=== PATIENT | male | born 1940 | race Caucasian/White ===

== ENCOUNTER → 2020-07-06 | Outpatient (CLI) | payer OTHER | END | disposition home or self-care (01) | LOC: RAH 08:19 | PROVIDERS: ATTEND Urology | DX: R31.29 Other microscopic hematuria (principal) | CPT/HCPCS: 76770 ==

== ENCOUNTER 2022-07-10 07:30 | Day surgery (SDC) | payer MEDICARE ==
[2022-07-07 11:54] LABS: BASOPHILS % (AUTO) 0.2 % (0.0-5.0); EOSINOPHILS % (AUTO) 0.9 % (0.0-8.0); HEMATOCRIT 48.3 % (42-54); LYMPHOCYTES % (AUTO) 48.9 % (21.0-51.0); MEAN CORPUSCULAR HEMOGLOBIN 28.6 pg (27.0-33.0); MEAN CORPUSCULAR HGB CONC 32.5 g/dL (32.0-36.0); MEAN CORPUSCULAR VOLUME 88.1 fL (79-99); MONOCYTES % (AUTO) 6.7 % (3.0-13.0); NEUTROPHILS % (AUTO) 43.1 % (40.0-77.0); PLATELET COUNT (AUTO) 165 K/uL (130-400); RED BLOOD CELL COUNT(AUTO) 5.48 MIL/uL (4.50-6.20); RED CELL DISTRIBUTION WIDTH 13.4 % (11.0-15.5); WHITE BLOOD COUNT (AUTO) 12.6 K/uL (4.8-10.8)
[2022-07-07 12:00] LABS: CREATININE 1.3 mg/dL (0.5-1.5); POTASSIUM 4.3 mmol/L (3.5-5.1)
[2022-07-07 12:09] LABS: INR 1.01 (0.85-1.15)
[2022-07-07 12:10] LABS: PARTIAL THROMBOPLASTIN TIME 29.2 SEC (26.3-35.5)
[2022-07-09 12:19] VITALS: BP 211/95
[2022-07-10] VITALS (13 sets, daily range): BP systolic 142–183; BP diastolic 70–88
[~2022-07-10 07:30] MED LIST: BETA1TAB20 PO; BUPIVACAINE/PF 0.25% 30ML VIAL IJ ONE; CARB15DR OU; CEFAZOLIN SODIUM 1 GM VIAL IVP SCH; HYDR-4068 PO; LISI20TA24 PO; POLY17PO4 PO; VANCOMYCIN 1G/250ML KIT 250 ML IV SCH; VITA1CAP85 PO
[2022-07-10] MEDS ORDERED: LACTATED RINGERS 1000ML 1,000 ML IV ONE (07:41)
[2022-07-10] MEDS ORDERED: FAMOTIDINE 20MG VIAL IV ONE (08:01)
[2022-07-10] MEDS ORDERED: BUPIVACAINE/PF 0.25% 30ML VIAL IJ ONE ×2 (08:11→09:29)
[2022-07-10] MEDS ORDERED: LIDOCAINE HCL 1% 20 ML VIAL ONE (08:11)
[2022-07-10] MEDS ORDERED: LIDOCAINE PF 100MG/5ML (2%) SYRINGE 5ML ONE (08:13)
[2022-07-10] MEDS ORDERED: ROCURONIUM 10MG/1ML SYR 10 MG/ML ML ONE (08:14)
[2022-07-10] MEDS ORDERED: PROPOFOL 10 MG/ML 20ML VIAL IV ONE (08:14)
[2022-07-10] MEDS ORDERED: FENTANYL CITRATE PF 50 MCG/1 ML 2ML VIAL ONE (08:14)
[2022-07-10] MEDS ORDERED: GLYCOPYRROLATE 1 MG/5 ML SYRINGE ONE (09:23)
[2022-07-10] MEDS ORDERED: ONDANSETRON 4MG INJ ONE (09:33)
[2022-07-10] MEDS ORDERED: NEOSTIGMINE 5MG/5ML SYR IV ONE (10:21)
== END 2022-07-10 12:00 | disposition home or self-care (01) ==
LOC: DAH 07:30
PROVIDERS: ATTEND Urology
DX: Z46.2 Encounter for fitting and adjustment of other devices related to nervous system and special senses (principal); N31.2 Flaccid neuropathic bladder, not elsewhere classified; I10 Essential (primary) hypertension; K21.9 Gastro-esophageal reflux disease without esophagitis; Z79.01 Long term (current) use of anticoagulants; Z79.899 Other long term (current) drug therapy; Z98.49 Cataract extraction status, unspecified eye; Z98.890 Other specified postprocedural states; Z98.52 Vasectomy status; Z86.73 Personal history of transient ischemic attack (TIA), and cerebral infarction without residual deficits
CPT/HCPCS: 80048; 85025; 85610; 85730; 87426; 36415; 71045; 93005; 64585; 64595; A6260; J7120; J3490 ×4; J3010; J2710; J2001; J2704; J2405; J3370; G0168; A4930; A4215; A4223; A4222; A4221; A4663; A4600

== ENCOUNTER 2022-08-14 11:43 | Inpatient (IN) | payer MEDICARE, OTHER ==
[~2022-08-14] VITALS: Ht 177.8 cm; Wt 79.5 kg
[~2022-08-14 11:43] MED LIST changes: -BUPIVACAINE/PF 0.25% 30ML VIAL IJ ONE; -CEFAZOLIN SODIUM 1 GM VIAL IVP SCH; -VANCOMYCIN 1G/250ML KIT 250 ML IV SCH
[2022-08-14 12:29] LABS: BASOPHILS % (AUTO) 0.2 % (0.0-5.0); EOSINOPHILS % (AUTO) 2.9 % (0.0-8.0); HEMATOCRIT 44.4 % (42-54); MEAN CORPUSCULAR HEMOGLOBIN 28.5 pg (27.0-33.0); MEAN CORPUSCULAR HGB CONC 33.3 g/dL (32.0-36.0); MEAN CORPUSCULAR VOLUME 85.4 fL (79-99); MONOCYTES % (AUTO) 8.5 % (3.0-13.0); PLATELET COUNT (AUTO) 220 K/uL (130-400); RED CELL DISTRIBUTION WIDTH 12.9 % (11.0-15.5); WHITE BLOOD COUNT (AUTO) 16.4 K/uL (4.8-10.8)
[2022-08-14 12:42] LABS: CREATININE 1.5 mg/dL (0.5-1.5); POTASSIUM 3.9 mmol/L (3.5-5.1)
[2022-08-14 12:57] LABS: ALBUMIN 3.3 g/dL (3.5-5.0); TOTAL PROTEIN, SERUM 7.3 g/dL (6.0-8.3)
[2022-08-14] MEDS ORDERED: ZOSYN 3.375GM +NS 50ML IV ONE (14:00)
[2022-08-14] MEDS ORDERED: 0.9%NACL 1000ML 1,000 ML IV ONE (14:00)
[2022-08-14] MEDS ORDERED: DIATR MEGLU/DIATRIZOATE SODIUM 30 ML BOTTLE ONE ×2 (14:07→14:50)
[2022-08-14 14:35] LABS: APPEARANCE,URINE SL CLOUDY (CLEAR); BILIRUBIN,URINE NEGATIVE (NEGATIVE); COLOR,URINE YELLOW (YELLOW); GLUCOSE, URINE (UA) NEGATIVE (NEGATIVE); KETONES,URINE 5 mg/dL (NEGATIVE); LEUKOCYTE ESTERASE ,URINE MODERATE Leu/uL (NEGATIVE); NITRATE,URINE POSITIVE (NEGATIVE); OCCULT BLOOD,URINE TRACE-INTACT (NEGATIVE); PH,URINE 7.5 (5.0-8.0); PROTEIN,URINE TRACE mg/dL (NEGATIVE); UROBILINOGEN,URINE 0.2 mg/dL (0.2-1.0)
[2022-08-14 14:54] LABS: AMORPHOUS SEDIMENT,UR Moderate /LPF (None Seen); BACTERIA,URINE Few /HPF (None Seen); CALCIUM OXALATE CRYSTALS,UR Few /LPF (None Seen); MUCUS,URINE Few LPF (None Seen); SQUAMOUS EPITHELIAL CELL,UR Few /HPF (0-2)
[2022-08-14] MEDS ORDERED: ACETAMINOPHEN 325 MG TAB PO PRN ×2 (17:00)
[2022-08-14] MEDS ORDERED: DIPHENHYDRAMINE HCL 25 MG CAPSULE PO PRN (17:00)
[2022-08-14] MEDS ORDERED: ONDANSETRON 4MG INJ IV PRN (17:00)
[2022-08-14] MEDS ORDERED: MORPHINE 2 MG SYG IVP PRN (17:00)
[2022-08-14] MEDS: 0.9%NACL 1000ML 1,000 ML IV SCH ×2 (17:41→19:29)
[2022-08-14 18:58] VITALS: BP 131/59
[2022-08-14] MEDS: FAMOTIDINE 20MG VIAL IV SCH (21:03)
[2022-08-14] MEDS: ZOSYN 3.375GM+NS 50ML 50 ML IV SCH (21:03)
[2022-08-15] VITALS (23 sets, daily range): BP systolic 102–171; BP diastolic 44–90
[2022-08-15] MEDS: ZOSYN 3.375GM+NS 50ML 50 ML IV SCH ×3 (05:08→20:47)
[2022-08-15] MEDS: 0.9%NACL 1000ML 1,000 ML IV SCH ×2 (05:09→20:48)
[2022-08-15 05:47] LABS: HEMATOCRIT 39.1 % (42-54); MEAN CORPUSCULAR HEMOGLOBIN 28.3 pg (27.0-33.0); MEAN CORPUSCULAR HGB CONC 33.2 g/dL (32.0-36.0); MEAN CORPUSCULAR VOLUME 85.2 fL (79-99); RED BLOOD CELL COUNT(AUTO) 4.59 MIL/uL (4.50-6.20); RED CELL DISTRIBUTION WIDTH 13.1 % (11.0-15.5)
[2022-08-15 06:18] LABS: ALBUMIN 2.6 g/dL (3.5-5.0); CREATININE 1.4 mg/dL (0.5-1.5); POTASSIUM 4.1 mmol/L (3.5-5.1); TOTAL PROTEIN, SERUM 6.2 g/dL (6.0-8.3)
[2022-08-15] MEDS ORDERED: BUPIVACAINE/PF 0.5% 30ML VIAL ONE (07:56)
[2022-08-15] MEDS ORDERED: LACTATED RINGERS 1000ML 1,000 ML IV ONE (08:24)
[2022-08-15] MEDS ORDERED: ROCURONIUM 10MG/1ML SYR 10 MG/ML ML ONE (08:53)
[2022-08-15] MEDS ORDERED: FENTANYL CITRATE PF 50 MCG/1 ML 2ML VIAL ONE (08:53)
[2022-08-15] MEDS ORDERED: SUCCINYLCHOLINE 200MG/10ML SYR ONE ×2 (08:53→08:57)
[2022-08-15] MEDS ORDERED: ONDANSETRON 4MG INJ ONE (08:53)
[2022-08-15] MEDS ORDERED: NEOSTIGMINE 5MG/5ML SYR IV ONE (08:53)
[2022-08-15] MEDS ORDERED: PROPOFOL 10 MG/ML 20ML VIAL IV ONE (08:53)
[2022-08-15] MEDS ORDERED: DEXAMETHASONE SOD PHOSPHATE 10MG/ML 1ML VIAL ONE ×2 (08:53→10:13)
[2022-08-15] MEDS ORDERED: GLYCOPYRROLATE 1 MG/5 ML SYRINGE ONE (08:53)
[2022-08-15] MEDS: VITAMIN B COMPLEX 1 CAPSULE PO SCH (09:00)
[2022-08-15] MEDS: ARTIFICAL TEARS SOL 15 ML OU SCH ×4 (09:00→20:49)
[2022-08-15] MEDS: POLYETHYLENE GLYCOL 3350 17 GM POWD.PACK PO SCH (09:00)
[2022-08-15] MEDS: LISINOPRIL 20 MG TABLET PO SCH ×2 (09:00→20:48)
[2022-08-15] MEDS: MULTIVITS,STRESS FORMULA/ZINC 1 TABLET PO SCH ×2 (09:00→20:48)
[2022-08-15] MEDS ORDERED: EPHEDRINE SULFATE 50 MG/ML AMPULE ONE (09:25)
[2022-08-15] MEDS: HYDROCODONE/ACETAMINOPHEN 7.5/325 MG 15 ML UDCUP PO SCH ×3 (15:00→21:00)
[2022-08-15] MEDS ORDERED: MORPHINE 2 MG SYG IVP PRN (15:00)
[2022-08-15] MEDS: FAMOTIDINE 20MG VIAL IV SCH (20:47)
[2022-08-16] VITALS: BP 101/49
[2022-08-16] MEDS: HYDROCODONE/ACETAMINOPHEN 7.5/325 MG 15 ML UDCUP PO SCH ×4 (03:00→21:00)
[2022-08-16 04:00] VITALS: BP 116/54
[2022-08-16] MEDS: ZOSYN 3.375GM+NS 50ML 50 ML IV SCH ×3 (05:03→21:54)
[2022-08-16 07:24] VITALS: BP 107/50
[2022-08-16] MEDS: MULTIVITS,STRESS FORMULA/ZINC 1 TABLET PO SCH ×2 (09:00→21:00)
[2022-08-16] MEDS: LISINOPRIL 20 MG TABLET PO SCH ×2 (09:00→21:00)
[2022-08-16] MEDS: POLYETHYLENE GLYCOL 3350 17 GM POWD.PACK PO SCH (10:03)
[2022-08-16] MEDS: ARTIFICAL TEARS SOL 15 ML OU SCH ×4 (10:04→21:58)
[2022-08-16 11:49] VITALS: BP 120/54
[2022-08-16 15:21] LABS: INR 1.05 (0.85-1.15); PROTHROMBIN TIME 11.4 SEC (9.6-11.6)
[2022-08-16 15:51] VITALS: BP 116/53
[2022-08-16] MEDS: 0.9%NACL 1000ML 1,000 ML IV SCH ×2 (19:31→21:54)
[2022-08-16 20:00] VITALS: BP 109/48
[2022-08-16] MEDS: FAMOTIDINE 20MG VIAL IV SCH (21:54)
[2022-08-17] VITALS: BP 143/63
[2022-08-17] MEDS: HYDROCODONE/ACETAMINOPHEN 7.5/325 MG 15 ML UDCUP PO SCH ×5 (03:00→21:00)
[2022-08-17 04:00] VITALS: BP 133/61
[2022-08-17] MEDS: ZOSYN 3.375GM+NS 50ML 50 ML IV SCH ×3 (05:02→21:47)
[2022-08-17 08:22] VITALS: BP 112/64
[2022-08-17] MEDS: VITAMIN B COMPLEX 1 CAPSULE PO SCH (09:00)
[2022-08-17] MEDS: MULTIVITS,STRESS FORMULA/ZINC 1 TABLET PO SCH ×2 (09:00→21:49)
[2022-08-17] MEDS: LISINOPRIL 20 MG TABLET PO SCH ×2 (09:05→21:47)
[2022-08-17] MEDS: POLYETHYLENE GLYCOL 3350 17 GM POWD.PACK PO SCH (09:06)
[2022-08-17] MEDS: ARTIFICAL TEARS SOL 15 ML OU SCH ×4 (09:07→21:50)
[2022-08-17 12:22] VITALS: BP 116/71
[2022-08-17 17:15] VITALS: BP 166/77
[2022-08-17] MEDS: 0.9%NACL 1000ML 1,000 ML IV SCH (18:39)
[2022-08-17 20:00] VITALS: BP 105/64
[2022-08-17] MEDS: FAMOTIDINE 20MG VIAL IV SCH (21:47)
[2022-08-18] VITALS (7 sets, daily range): BP systolic 135–167; BP diastolic 67–86
[2022-08-18 00:34] LABS: BASOPHILS % (AUTO) 0.4 % (0.0-5.0); EOSINOPHILS % (AUTO) 2.1 % (0.0-8.0); HEMATOCRIT 40.2 % (42-54); LYMPHOCYTES % (AUTO) 41.9 % (21.0-51.0); MEAN CORPUSCULAR HEMOGLOBIN 28.6 pg (27.0-33.0); MEAN CORPUSCULAR HGB CONC 33.3 g/dL (32.0-36.0); MEAN CORPUSCULAR VOLUME 85.7 fL (79-99); MONOCYTES % (AUTO) 8.1 % (3.0-13.0); NEUTROPHILS % (AUTO) 47.1 % (40.0-77.0); PLATELET COUNT (AUTO) 235 K/uL (130-400); RED BLOOD CELL COUNT(AUTO) 4.69 MIL/uL (4.50-6.20); RED CELL DISTRIBUTION WIDTH 13.1 % (11.0-15.5); WHITE BLOOD COUNT (AUTO) 17.1 K/uL (4.8-10.8)
[2022-08-18 00:43] LABS: CREATININE 1.4 mg/dL (0.5-1.5); MAGNESIUM 1.7 mg/dL (1.80-2.40); PHOSPHORUS 2.2 mg/dL (2.5-4.9); POTASSIUM 3.4 mmol/L (3.5-5.1)
[2022-08-18] MEDS: 0.9%NACL 1000ML 1,000 ML IV SCH (01:00)
[2022-08-18] MEDS: HYDROCODONE/ACETAMINOPHEN 7.5/325 MG 15 ML UDCUP PO SCH ×5 (01:02→21:00)
[2022-08-18] MEDS: ZOSYN 3.375GM+NS 50ML 50 ML IV SCH (05:16)
[2022-08-18] MEDS ORDERED: RENAL DOSE IV SCH (06:30)
[2022-08-18] MEDS: MULTIVITS,STRESS FORMULA/ZINC 1 TABLET PO SCH ×2 (09:00→21:00)
[2022-08-18] MEDS: POLYETHYLENE GLYCOL 3350 17 GM POWD.PACK PO SCH (09:17)
[2022-08-18] MEDS: MEROPENEM 1 GM VIAL IVP SCH ×2 (09:17→18:37)
[2022-08-18] MEDS: ARTIFICAL TEARS SOL 15 ML OU SCH ×4 (09:17→21:32)
[2022-08-18] MEDS: FAMOTIDINE 20MG TAB PO SCH (09:17)
[2022-08-18] MEDS: LISINOPRIL 20 MG TABLET PO SCH ×2 (09:17→21:31)
[2022-08-19 03:30] VITALS: BP 150/74
[2022-08-19] MEDS: HYDROCODONE/ACETAMINOPHEN 7.5/325 MG 15 ML UDCUP PO SCH ×4 (04:54→15:00)
[2022-08-19 06:05] LABS: BASOPHILS % (AUTO) 0.4 % (0.0-5.0); EOSINOPHILS % (AUTO) 2.6 % (0.0-8.0); HEMATOCRIT 34.6 % (42-54); MEAN CORPUSCULAR HEMOGLOBIN 28.6 pg (27.0-33.0); MEAN CORPUSCULAR HGB CONC 33.5 g/dL (32.0-36.0); MEAN CORPUSCULAR VOLUME 85.2 fL (79-99); MONOCYTES % (AUTO) 9.2 % (3.0-13.0); NEUTROPHILS % (AUTO) 47.3 % (40.0-77.0); PLATELET COUNT (AUTO) 207 K/uL (130-400); RED BLOOD CELL COUNT(AUTO) 4.06 MIL/uL (4.50-6.20); RED CELL DISTRIBUTION WIDTH 13.1 % (11.0-15.5); WHITE BLOOD COUNT (AUTO) 15.4 K/uL (4.8-10.8)
[2022-08-19 06:14] LABS: CREATININE 1.2 mg/dL (0.5-1.5); POTASSIUM 3.5 mmol/L (3.5-5.1)
[2022-08-19] MEDS: MEROPENEM 1 GM VIAL IVP SCH (06:24)
[2022-08-19 08:00] VITALS: BP 156/69
[2022-08-19] MEDS: POLYETHYLENE GLYCOL 3350 17 GM POWD.PACK PO SCH (09:22)
[2022-08-19] MEDS: LISINOPRIL 20 MG TABLET PO SCH (09:22)
[2022-08-19] MEDS: MULTIVITS,STRESS FORMULA/ZINC 1 TABLET PO SCH (09:22)
[2022-08-19] MEDS: VITAMIN B COMPLEX 1 CAPSULE PO SCH (09:22)
[2022-08-19] MEDS: FAMOTIDINE 20MG TAB PO SCH (09:22)
[2022-08-19] MEDS: ARTIFICAL TEARS SOL 15 ML OU SCH ×3 (09:28→17:00)
[2022-08-19 12:00] VITALS: BP 172/88
== END 2022-08-19 16:40 | disposition home or self-care (01) | DRG 327 ==
LOC: EDH 11:43 → EDHIP 16:38 → OBSVTOIN 16:38 → 3DH 18:29
PROVIDERS: ADMIT Internal Medicine; ATTEND Internal Medicine
PROC: 0DJ04ZZ Inspection of Upper Intestinal Tract, Percutaneous Endoscopic Approach (ICD-10-PCS; 2022-08-15)
PROC: 0DJ08ZZ Inspection of Upper Intestinal Tract, Via Natural or Artificial Opening Endoscopic (ICD-10-PCS; principal; 2022-08-15 09:46)
PROC: 02HV33Z Insertion of Infusion Device into Superior Vena Cava, Percutaneous Approach (ICD-10-PCS; 2022-08-19)
DX: K56.600 Partial intestinal obstruction, unspecified as to cause (principal); C91.10 Chronic lymphocytic leukemia of B-cell type not having achieved remission; E87.1 Hypo-osmolality and hyponatremia; N39.0 Urinary tract infection, site not specified; Z16.12 Extended spectrum beta lactamase (ESBL) resistance; Z16.24 Resistance to multiple antibiotics; Z20.822 Contact with and (suspected) exposure to COVID-19; B96.29 Other Escherichia coli [E. coli] as the cause of diseases classified elsewhere; E11.9 Type 2 diabetes mellitus without complications; E66.9 Obesity, unspecified; E78.5 Hyperlipidemia, unspecified; E86.0 Dehydration; E87.5 Hyperkalemia; E87.6 Hypokalemia; I10 Essential (primary) hypertension; I25.10 Atherosclerotic heart disease of native coronary artery without angina pectoris; J84.10 Pulmonary fibrosis, unspecified; K21.9 Gastro-esophageal reflux disease without esophagitis; K29.70 Gastritis, unspecified, without bleeding; N40.0 Benign prostatic hyperplasia without lower urinary tract symptoms; Z79.899 Other long term (current) drug therapy; Z86.73 Personal history of transient ischemic attack (TIA), and cerebral infarction without residual deficits
CPT/HCPCS: 36415; 43235; 71045; 71250; 74176; 74240; 80048; 80053; 81001; 83605; 83735; 84100; 84484; 85025; 85027; 85610; 87040; 87077; 87088; 87186; 87426; 93005; C1894; G0378; J0330; J1100; J2185; J2405; J2543; J2704; J2710; J3010; J3490; J7030; J7120; Q9963

== ENCOUNTER 2022-08-27 01:58 | Observation (INO) | payer OTHER ==
[~2022-08-27] VITALS: Ht 177.8 cm; Wt 76.0 kg
[~2022-08-27 01:58] MED LIST changes: +TAMS-1 PO
[2022-08-27 03:02] LABS: BASOPHILS % (AUTO) 0.3 % (0.0-5.0); EOSINOPHILS % (AUTO) 0.7 % (0.0-8.0); HEMATOCRIT 36.5 % (42-54); LYMPHOCYTES % (AUTO) 28.9 % (21.0-51.0); MEAN CORPUSCULAR HEMOGLOBIN 28.1 pg (27.0-33.0); MEAN CORPUSCULAR HGB CONC 33.7 g/dL (32.0-36.0); MEAN CORPUSCULAR VOLUME 83.3 fL (79-99); MONOCYTES % (AUTO) 8.4 % (3.0-13.0); PLATELET COUNT (AUTO) 255 K/uL (130-400); RED BLOOD CELL COUNT(AUTO) 4.38 MIL/uL (4.50-6.20); RED CELL DISTRIBUTION WIDTH 12.6 % (11.0-15.5); WHITE BLOOD COUNT (AUTO) 15.7 K/uL (4.8-10.8)
[2022-08-27 03:11] LABS: APPEARANCE,URINE CLEAR (CLEAR); BILIRUBIN,URINE NEGATIVE (NEGATIVE); COLOR,URINE LIGHT-YELLOW (YELLOW); GLUCOSE, URINE (UA) NEGATIVE (NEGATIVE); KETONES,URINE NEGATIVE (NEGATIVE); LEUKOCYTE ESTERASE ,URINE NEGATIVE Leu/uL (NEGATIVE); NITRATE,URINE NEGATIVE (NEGATIVE); OCCULT BLOOD,URINE MODERATE (NEGATIVE); PH,URINE 6.5 (5.0-8.0); PROTEIN,URINE 70 mg/dL (NEGATIVE); UROBILINOGEN,URINE 0.2 mg/dL (0.2-1.0)
[2022-08-27 03:12] LABS: CREATININE 1.1 mg/dL (0.5-1.5); POTASSIUM 3.7 mmol/L (3.5-5.1)
[2022-08-27 03:18] LABS: ALBUMIN 2.5 g/dL (3.5-5.0); TOTAL PROTEIN, SERUM 6.5 g/dL (6.0-8.3)
[2022-08-27 03:19] LABS: BACTERIA,URINE RARE /HPF (None Seen); MUCUS,URINE RARE LPF (None Seen); SQUAMOUS EPITHELIAL CELL,UR RARE /HPF (0-2)
[2022-08-27] MEDS ORDERED: LIDOCAINE 5% TOPICAL PATCH TP ONE (03:34)
[2022-08-27 04:17] LABS: ABG BASE EXCESS 4.1 mmol/L (-2.0-3.0); ABG HCO3 26.8 mmol/L (21.0-28.0); ABG OXYGEN SATURATION 88.7 % (95.0-99.0); ABG PCO2 34 mmHg (35-48)
[2022-08-27] MEDS ORDERED: ONDANSETRON 4MG INJ IVP PRN (08:00)
[2022-08-27] MEDS ORDERED: ACETAMINOPHEN 325 MG TAB PO PRN (08:00)
[2022-08-27] MEDS ORDERED: ACETAMINOPHEN WITH CODEINE 1 TAB TAB PO PRN (08:00)
[2022-08-27] MEDS ORDERED: MORPHINE 2 MG SYG IVP PRN (08:00)
[2022-08-27] MEDS: MEROPENEM 1 GM VIAL IVP SCH ×2 (09:34→20:27)
[2022-08-27] MEDS: ACETAMINOPHEN WITH CODEINE 1 TAB TAB PO PRN ×2 (14:02→20:29)
[2022-08-27] MEDS ORDERED: VANCOMYCIN PROTOCOL PER PHARMACY IV SCH (15:00)
[2022-08-27 16:00] VITALS: BP 128/69
[2022-08-27] MEDS ORDERED: PHARMACY COMMUNICATION MISC SCH (16:00)
[2022-08-27] MEDS: VANCOMYCIN 1.5 GM/250 ML BAG 250 ML IV SCH (17:35)
[2022-08-27] MEDS: REFRESH TEARS OU SCH ×2 (17:41→20:42)
[2022-08-27 19:00] VITALS: BP 146/75
[2022-08-27] MEDS: LISINOPRIL 20 MG TABLET PO SCH (20:28)
[2022-08-27] MEDS: PRESERVISION AREDS PO SCH (20:42)
[2022-08-27] MEDS ORDERED: 0.9%NACL 1000ML 1,000 ML IV SCH (22:30)
[2022-08-28] VITALS: BP 140/70
[2022-08-28 04:00] VITALS: BP 150/80
[2022-08-28 05:48] LABS: HEMATOCRIT 37.7 % (42-54); MEAN CORPUSCULAR HEMOGLOBIN 28.5 pg (27.0-33.0); MEAN CORPUSCULAR HGB CONC 34.2 g/dL (32.0-36.0); MEAN CORPUSCULAR VOLUME 83.4 fL (79-99); RED BLOOD CELL COUNT(AUTO) 4.52 MIL/uL (4.50-6.20); RED CELL DISTRIBUTION WIDTH 12.9 % (11.0-15.5)
[2022-08-28 06:06] LABS: ALBUMIN 2.3 g/dL (3.5-5.0); CREATININE 1.1 mg/dL (0.5-1.5); TOTAL PROTEIN, SERUM 6.4 g/dL (6.0-8.3)
[2022-08-28 08:00] VITALS: BP 169/88
[2022-08-28] MEDS ORDERED: POLYETHYLENE GLYCOL 3350 17 GM POWD.PACK PO SCH ×2 (09:00)
[2022-08-28] MEDS: REFRESH TEARS OU SCH ×4 (09:00→19:54)
[2022-08-28] MEDS: PRESERVISION AREDS PO SCH ×2 (09:00→19:54)
[2022-08-28] MEDS ORDERED: TAMSULOSIN HCL 0.4 MG CAP.ER.24H PO SCH (09:00)
[2022-08-28] MEDS: MEROPENEM 1 GM VIAL IVP SCH ×2 (09:29→19:54)
[2022-08-28] MEDS: LISINOPRIL 20 MG TABLET PO SCH ×2 (09:29→19:54)
[2022-08-28 12:00] VITALS: BP 140/85
[2022-08-28 16:00] VITALS: BP 132/72
[2022-08-28] MEDS: VANCOMYCIN 1.5 GM/250 ML BAG 250 ML IV SCH (16:36)
[2022-08-28] MEDS: ACETAMINOPHEN WITH CODEINE 1 TAB TAB PO PRN (16:37)
== END 2022-08-28 20:35 ==
LOC: EDH 01:58 → EDHIP 05:14 → 3AH 08:35
PROVIDERS: ADMIT Internal Medicine Hematology & Oncology; ATTEND Internal Medicine Hematology & Oncology
DX: S32.029A Unspecified fracture of second lumbar vertebra, initial encounter for closed fracture (principal); N20.0 Calculus of kidney; C91.10 Chronic lymphocytic leukemia of B-cell type not having achieved remission; E78.5 Hyperlipidemia, unspecified; I10 Essential (primary) hypertension; I25.10 Atherosclerotic heart disease of native coronary artery without angina pectoris; N39.0 Urinary tract infection, site not specified; J84.10 Pulmonary fibrosis, unspecified; J96.01 Acute respiratory failure with hypoxia; N31.9 Neuromuscular dysfunction of bladder, unspecified; R29.6 Repeated falls; W18.30XA Fall on same level, unspecified, initial encounter; Y93.89 Activity, other specified; Y92.009 Unspecified place in unspecified non-institutional (private) residence as the place of occurrence of the external cause; Z87.01 Personal history of pneumonia (recurrent); Z86.73 Personal history of transient ischemic attack (TIA), and cerebral infarction without residual deficits; Z79.899 Other long term (current) drug therapy
CPT/HCPCS: 96376 ×2; 96365; 96366 ×2; 96375; 99285; 82435; 82550; 82947; 83735 ×2; 84132; 84295; 80053 ×2; 82803; 83880; 85025; 85018; 87040 ×2; 83605 ×2; 81001; 36415 ×2; 71045; 70450; 72131; 93005; 36600; 85027; 97161; 97039 ×2; G0378 ×39; J7030; J2185 ×4; J3370 ×2

== ENCOUNTER 2022-10-29 00:27 | Emergency (ER) | payer OTHER ==
[~2022-10-29] VITALS: Ht 182.9 cm; Wt 86.2 kg
[~2022-10-29 00:27] MED LIST changes: -BETA1TAB20 PO; -CARB15DR OU; -HYDR-4068 PO; -LISI20TA24 PO; +VIT1CAPS5 PO; -VITA1CAP85 PO; +VITA1TAB22 PO
[2022-10-29 02:01] LABS: BASOPHILS % (AUTO) 0.3 % (0.0-5.0); EOSINOPHILS % (AUTO) 2.2 % (0.0-8.0); HEMATOCRIT 39.9 % (42-54); LYMPHOCYTES % (AUTO) 36.8 % (21.0-51.0); MEAN CORPUSCULAR HEMOGLOBIN 27.7 pg (27.0-33.0); MEAN CORPUSCULAR HGB CONC 33.1 g/dL (32.0-36.0); MEAN CORPUSCULAR VOLUME 83.6 fL (79-99); MONOCYTES % (AUTO) 9.6 % (3.0-13.0); NEUTROPHILS % (AUTO) 50.7 % (40.0-77.0); PLATELET COUNT (AUTO) 255 K/uL (130-400); RED BLOOD CELL COUNT(AUTO) 4.77 MIL/uL (4.50-6.20); WHITE BLOOD COUNT (AUTO) 14.7 K/uL (4.8-10.8)
[2022-10-29 02:13] LABS: POTASSIUM 4.3 mmol/L (3.5-5.1)
[2022-10-29 02:18] LABS: ALBUMIN 2.7 g/dL (3.5-5.0); TOTAL PROTEIN, SERUM 5.9 g/dL (6.0-8.3)
[2022-10-29] MEDS ORDERED: ONDANSETRON 4MG INJ IVP ONE (07:30)
[2022-10-29] MEDS ORDERED: MORPHINE 4 MG SYG IVP ONE (07:30)
[2022-10-29 07:31] VITALS: BP 125/63
== END 2022-10-29 08:40 | disposition home or self-care (01) ==
LOC: EDH 00:27
DX: R10.13 Epigastric pain (principal); I25.2 Old myocardial infarction; I25.10 Atherosclerotic heart disease of native coronary artery without angina pectoris; I63.9 Cerebral infarction, unspecified; K21.9 Gastro-esophageal reflux disease without esophagitis; J84.10 Pulmonary fibrosis, unspecified; N31.9 Neuromuscular dysfunction of bladder, unspecified; C95.90 Leukemia, unspecified not having achieved remission; Z98.890 Other specified postprocedural states; Z79.899 Other long term (current) drug therapy; Z88.8 Allergy status to other drugs, medicaments and biological substances; Z91.040 Latex allergy status; Z88.1 Allergy status to other antibiotic agents
CPT/HCPCS: 99285; 96374; 71045; 96375; 84484; 80053; 85025; 36415; 93005 ×2; J2405; J2270